=== PATIENT | female | born 1965 | race Caucasian/White ===

== ENCOUNTER 2016-09-21 05:11 | Observation (INO) | payer OTHER ==
[2016-09-21] MEDS ORDERED: NARCAN INJ IVP ONE (05:29)
[2016-09-21] MEDS ORDERED: D5 1/2 NS 1000 ML 1,000 ML IV ONE (05:31)
[2016-09-21] MEDS ORDERED: NARCAN INJ ONE (05:31)
[2016-09-21 05:34] LABS: BILIRUBIN,URINE NEGATIVE (NEGATIVE); BLOOD/HEMOGLOBIN,URINE 2+ (NEGATIVE); GLUCOSE, URINE NEGATIVE (NEGATIVE); KETONES,URINE 2+ (NEGATIVE); LEUKOCYTE ESTERASE ,URINE NEGATIVE (NEGATIVE); NITRITES,URINE NEGATIVE (NEGATIVE); PROTEIN,URINE 1+ (NEGATIVE); UROBILINOGEN,URINE NORMAL (NORMAL)
[2016-09-21 05:39] LABS: APPEARANCE,URINE CLEAR (CLEAR); BACTERIA,URINE TRACE /HPF (NEGATIVE); COLOR,URINE YELLOW (YELLOW); HYALINE CASTS, URINE FEW /LPF (NEGATIVE); RBC,URINE 0-3 /HPF (NEGATIVE); SQUAMOUS EPITHELIAL CELL,UR RARE /HPF (NEGATIVE)
[2016-09-21] MEDS ORDERED: HALDOL INJ IM ONE (05:39)
[2016-09-21] MEDS ORDERED: HALDOL INJ ONE (05:44)
--- NOTE | 2016-09-21 05:47 | DR.GENAD ---
HPI - Complaint/Symptoms Chief Complaint Doctors Comments: Patient presented to the ED via Ems S/P being called by a family due patient being combative, destroying furniture, being loud. Patient is known to have a history of substance abuse. She was given one amp of D50 secondary to low blood glucose (40mg/dl) by EMS. Upon arrival to the ED patient was combative, loud,moving all extremities uncontrollably. She was put in restraints for her protection and safety of hospital personnel. PMH - PMH Past Medical History: Anxiety, Hypertension, Hypothyroidism, Seizures Past Surgical History: Yes Surgical History: , Hysterectomy - Family History Family Medical History: Diabetes Mellitus, Cancer, Coronary Artery Disease, Hypertension - Social History Do you use any recreational Drugs:: No ROS - Review of Systems Constitutional: No Symptoms Reported PE - Vital Signs Vitals: Temperature 98.2 F Pulse Rate [Apical] 90 Pulse Rate 102 Respiratory Rate 16 Blood Pressure [Right Arm] 133/69 Blood Pressure [Left Arm] 111/71 Blood Pressure 131/68 O2 Sat by Pulse Oximetry 100 - General Limitations: Altered Mental Status (due to substance abuse and sedation) General Appearance: Obtunded - Head Head Exam: Atraumatic, Other (sores in scalp) - Eyes Eye exam: Mydrasis (~3mm bilaterally) - Neck Neck Exam: Normal Inspection - Chest Chest Inspection: Normal Inspection - Respiratory Respiratory Exam: Normal Lung Sounds Bilat Respiratory Exam: Bilateral Clear to Auscultation - Cardiovascular Cardiovascular Exam: Regular Rate, Normal Rhythm - Abdominal Exam Abdominal Exam: Normal Inspection Abdominal Tenderness: negative: RUQ, RLQ, LUQ, LLQ, Epigastrium, Suprapubic, Diffuse, Mild, Moderate, Severe, Other - Extremities Extremities Exam: Normal Inspection - Back Back Exam: Normal Inspection - Neurologic Neurological Exam: negative: Alert - Psychiatric Psychiatric Exam: Agitated - Skin Skin Exam: Warm, Dry ROR - Labs Reviewed Result Diagrams: 09/21/16 05:40 09/21/16 05:40 Laboratory: WBC 12.4 X10^3/uL (3.6-10.0) H 09/21/16 05:40 RBC 3.96 X10^6/uL (3.5-5.4) 09/21/16 05:40 Hgb 12.1 g/dL (12.0-16.0) 09/21/16 05:40 Hct 36.4 % (36.0-47.0) 09/21/16 05:40 MCV 91.9 fL (80.0-100.0) 09/21/16 05:40 MCH 30.5 pg (27.0-34.0) 09/21/16 05:40 MCHC 33.2 g/dL (33.0-35.0) 09/21/16 05:40 RDW 14.0 % (11.6-16.5) 09/21/16 05:40 Plt Count 120 X10^3/uL (150.0-450.0) L 09/21/16 05:40 MPV 11.3 fL (7.4-11.0) H 09/21/16 05:40 Neut % 89.3 % (42.0-75.0) H 09/21/16 05:40 Lymph % 4.5 % (21.0-51.0) L 09/21/16 05:40 [place] % 5.9 % (0.0-13.0) 09/21/16 05:40 Eos % 0.0 % (0.9-2.9) L 09/21/16 05:40 Baso % 0.3 % (0.2-1.0) 09/21/16 05:40 Neut # 11.1 x10^3/uL (2.2-4.8) H 09/21/16 05:40 Lymph # 0.6 X10^3/uL (1.3-2.9) L 09/21/16 05:40 [place] # 0.7 x10^3/uL (0.3-0.8) 09/21/16 05:40 Eos # 0.0 x10^3/uL (0.0-0.2) 09/21/16 05:40 Baso # 0.0 X10^3/uL (0.0-0.1) 09/21/16 05:40 Absolute Nucleated RBC 0.0 /100WBC 09/21/16 05:40 Sodium 139 mmol/L (136-145) 09/21/16 05:40 Corrected Sodium 139 mmol/L (136-145) 09/21/16 05:40 Potassium 4.2 mmol/L (3.5-5.1) 09/21/16 05:40 Chloride 101 mmol/L (98-107) 09/21/16 05:40 Carbon Dioxide 23.5 mmol/L (21-32) 09/21/16 05:40 BUN 37 mg/dL (7-18) H 09/21/16 05:40 Creatinine 1.21 mg/dL (0.55-1.02) H 09/21/16 05:40 Est GFR (MDRD) Af Amer > 60 (>60) 09/21/16 05:40 Est GFR (MDRD) Non-Af 50 (>60) L 09/21/16 05:40 Glucose 118 mg/dL (65-99) H 09/21/16 05:40 Calcium 8.9 mg/dL (8.5-10.1) 09/21/16 05:40 Corrected Calcium TNP 09/21/16 05:40 Total Bilirubin 1.70 mg/dL (0.2-1.0) H 09/21/16 05:40 AST 52 Units/L (15-37) H 09/21/16 05:40 ALT 34 Units/L (12-78) 09/21/16 05:40 Alkaline Phosphatase 115 Units/L (46-116) 09/21/16 05:40 Total Protein 8.2 g/dL (6.4-8.2) 09/21/16 05:40 Albumin 4.3 g/dL (3.4-5.0) 09/21/16 05:40 Globulin 3.9 g/dL (2.5-4.5) 09/21/16 05:40 Albumin/Globulin Ratio 1.1 Ratio (1.1-2.1) 09/21/16 05:40 Specimen Type Catherized urine 09/21/16 05:16 Urine Color Yellow (YELLOW) 09/21/16 05:16 Urine Appearance Clear (CLEAR) 09/21/16 05:16 Urine pH 6.0 (5.0 - 8.0) 09/21/16 05:16 Ur Specific [place] 1.025 (1.000-1.030) 09/21/16 05:16 Urine Protein 1+ (NEGATIVE) 09/21/16 05:16 Urine Glucose (UA) Negative (NEGATIVE) 09/21/16 05:16 Urine Ketones 2+ (NEGATIVE) 09/21/16 05:16 Urine Occult Blood 2+ (NEGATIVE) 09/21/16 05:16 Urine Nitrite Negative (NEGATIVE) 09/21/16 05:16 Urine Bilirubin Negative (NEGATIVE) 09/21/16 05:16 Urine Urobilinogen Normal (NORMAL) 09/21/16 05:16 Ur Leukocyte Esterase Negative (NEGATIVE) 09/21/16 05:16 Urine RBC 0-3 /HPF (NEGATIVE) 09/21/16 05:16 Urine WBC 0-2 /HPF (NEGATIVE) 09/21/16 05:16 Ur Squamous Epith Cells Rare /HPF (NEGATIVE) 09/21/16 05:16 Urine Bacteria Trace /HPF (NEGATIVE) 09/21/16 05:16 Hyaline Casts Few /LPF (NEGATIVE) 09/21/16 05:16 Ur Culture Indicated? No/not indicated 09/21/16 05:16 Urine Opiates Screen Negative (NEG=<300) 09/21/16 05:16 Urine Methadone Screen Negative (NEG=<300) 09/21/16 05:16 Ur Barbiturates Screen Negative (NEG=<200) 09/21/16 05:16 Ur Phencyclidine Scrn Negative (NEG=<25) 09/21/16 05:16 Ur Amphetamines Screen Positive (NEG=<1000) A 09/21/16 05:16 U Benzodiazepines Scrn Positive (NEG=<200) A 09/21/16 05:16 Urine Cocaine Screen Negative (NEG=<300) 09/21/16 05:16 U Marijuana (THC) Screen Negative (NEG=<50) 09/21/16 05:16 Ethyl Alcohol mg/dL < 3 mg/dL (0-19.9) 09/21/16 05:40 - XRAY XRAY Interpreted by: Radiologist (Chest: No acute cardiopulmonary disease) - EKG [place]: Normal Rhythm: NSR Hypertrophy: LAE - Diagnosis Discharge Problem: Substance abuse, Benzodiazepine abuse, Amphetamine abuse - Discharge Plan Condition: Stable - Follow ups/Referrals Follow ups/Referrals: NFD,None [Primary Care Provider] - 3 days - Instructions
[2016-09-21] MEDS ORDERED: ROMAZICON INJ 0.5 MG IVP ONE ×2 (05:51→06:39)
[2016-09-21] MEDS ORDERED: D5 1/2 NS 1000 ML 1,000 ML IV SCH (06:00)
[2016-09-21] MEDS ORDERED: D5 NS 1000 ML 1,000 ML IV SCH (06:00)
[2016-09-21 06:08] LABS: BASOPHILS % (AUTO) 0.3 % (0.2-1.0); HEMATOCRIT 36.4 % (36.0-47.0); HEMOGLOBIN 12.1 g/dL (12.0-16.0); LYMPHOCYTES # (AUTO) 0.6 X10^3/uL (1.3-2.9); LYMPHOCYTES % (AUTO) 4.5 % (21.0-51.0); MEAN CORPUSCULAR HEMOGLOBIN 30.5 pg (27.0-34.0); MEAN CORPUSCULAR HGB CONC 33.2 g/dL (33.0-35.0); MEAN CORPUSCULAR VOLUME 91.9 fL (80.0-100.0); MEAN PLATELET VOLUME 11.3 fL (7.4-11.0); MONOCYTES # (AUTO) 0.7 x10^3/uL (0.3-0.8); MONOCYTES % (AUTO) 5.9 % (0.0-13.0); NEUTROPHILS # (AUTO) 11.1 x10^3/uL (2.2-4.8); NEUTROPHILS % (AUTO) 89.3 % (42.0-75.0); PLATELET COUNT 120 X10^3/uL (150.0-450.0); RED BLOOD COUNT 3.96 X10^6/uL (3.5-5.4); WHITE BLOOD COUNT 12.4 X10^3/uL (3.6-10.0)
[2016-09-21 06:19] LABS: ALANINE AMINOTRANSFERASE 34 Units/L (12-78); ALBUMIN 4.3 g/dL (3.4-5.0); ALKALINE PHOSPHATASE 115 Units/L (46-116); ASPARTATE AMINO TRANSFERASE 52 Units/L (15-37); BLOOD ALCOHOL < 3 mg/dL (0-19.9); BLOOD UREA NITROGEN 37 mg/dL (7-18); CALCIUM 8.9 mg/dL (8.5-10.1); CARBON DIOXIDE 23.5 mmol/L (21-32); CHLORIDE 101 mmol/L (98-107); COR NA(FOR HYPERGLY) 139 mmol/L (136-145); CREATININE 1.21 mg/dL (0.55-1.02); GLUCOSE 118 mg/dL (65-99); SODIUM 139 mmol/L (136-145); TOTAL PROTEIN 8.2 g/dL (6.4-8.2); eGFR BLACK RACES > 60 (>60); eGFR NON BLACK RACES 50 (>60)
--- NOTE | 2016-09-21 06:45 | RAD ---
HISTORY: Altered mental status Study: Chest one view Comparison: July 23, 2016 Findings: The trachea is midline. The cardiac silhouette is unremarkable. The lungs are clear without focal infiltrate or effusion. The bony thorax is unremarkable. IMPRESSION: 1. No acute cardiopulmonary disease. Reported By:
[2016-09-21] MEDS ORDERED: NS 1000 ML 1,000 ML IV SCH (07:00)
[2016-09-21 07:05] LABS: TROPONIN I 0.05 ng/mL (0-1.5)
[2016-09-21 07:06] LABS: CKMB % 1.4 % (<4); CREATINE KINASE MB 17.3 ng/mL (0-4.0)
[2016-09-21] MEDS ORDERED: ROMAZICON INJ 0.5 MG ONE ×2 (07:12→07:22)
[2016-09-21] MEDS: NS 1000 ML 1,000 ML IV SCH ×2 (08:11→18:03)
--- NOTE | 2016-09-21 09:26 | DR.H&P ---
H&P - History & Physical for Day of: H&P Date: 09/21/16 - Chief Complaint Chief Complaint: psychotic episode - Allergies Allergies/Adverse Reactions: Allergies Allergy/AdvReac Type Severity Reaction Status Date / Time No Known Drug Allergy Allergy Verified 01/13/14 21:48 - History of Present Illness History of Present Illness: Patient presented to the emergency room with complaiints of family member of jordin bosch being combative, throwing furniture, and verbally abusive. Reji is known to have history of substance abuse. Upon arrival patient was found to be combative and was given medication to reverse benzodiazepine overdose as well as small dose of haldol to calm her down. Reji admitted to ICU for futher evaluation and treatment - Past Medical History Past Medical History: Anxiety, Hypertension, Hypothyroidism, Seizures Additional Medical History: fibromyalgia, lupus - Past Surgical History Surgical History: , Hysterectomy - Family History Family Medical History: Diabetes Mellitus, Cancer, Coronary Artery Disease, Hypertension - Social History Does patient currently use any type of tobacco product: Yes Have you used tobacco products in the last 12 months: Yes Type of Tobacco Use: Cigarettes Does any household member use tobacco: No Alcohol Use: Occasionally - Medications Home Medications: Unobtainable [UNOBTAINABLE] 09/21/16 [History Confirmed 09/21/16] - Review of Systems Constitutional: Other (combative) Eyes: No Symptoms Reported ENT: No Symptoms Reported Respiratory: No Symptoms Reported Cardiovascular: No Symptoms Reported Gastrointestinal: No Symptoms Reported Genitourinary: No Symptoms Reported Musculoskeletal: No Symptoms Reported Skin: No Symptoms Reported Neurological: See HPI, Confusion, Other (altered mental status) - Physical Exam Vital Signs: Pulse Rate [Apical] 68 Respiratory Rate 17 Blood Pressure [Right Arm] 139/72 O2 Sat by Pulse Oximetry 100 Oriented: Normal Eyes: Normal Ear: Normal Nose: Normal Throat: Normal Respiratory: Clear Throughout Cardiovascular: Normal : Normal Auscultation: Bowel Sounds: Normal Palpation: Normal Tenderness: Normal Skin: Normal Musculoskeletal: Normal Psychiatric: Agitation Mood Description: Angry, Hostile, Anxious Affect: Hysterical, Violent Speech Pattern: Inappropriate - Assessment/Plan (1) Amphetamine abuse Status: Acute Plan: continue to monitor (2) Benzodiazepine abuse Status: Acute Plan: continue to monitor (3) Substance abuse Status: Acute (4) Altered mental status Qualifiers: Altered mental status type: transient alteration of awareness Coma depth: C Coma timing: C Qualified Code(s): R40.4 - Transient alteration of awareness Status: Acute Plan: continue to monitor in ICU
[2016-09-21 09:32] VITALS: BMI 19.3
[2016-09-22] MEDS: NS 1000 ML 1,000 ML IV SCH (00:10)
[2016-09-22 05:29] LABS: BASOPHILS % (AUTO) 0.8 % (0.2-1.0); EOSINOPHILS # (AUTO) 0.1 x10^3/uL (0.0-0.2); EOSINOPHILS % (AUTO) 1.3 % (0.9-2.9); HEMATOCRIT 33.4 % (36.0-47.0); HEMOGLOBIN 11.4 g/dL (12.0-16.0); LYMPHOCYTES # (AUTO) 1.5 X10^3/uL (1.3-2.9); MEAN CORPUSCULAR HEMOGLOBIN 31.7 pg (27.0-34.0); MEAN CORPUSCULAR HGB CONC 34.3 g/dL (33.0-35.0); MEAN CORPUSCULAR VOLUME 92.5 fL (80.0-100.0); MEAN PLATELET VOLUME 11.1 fL (7.4-11.0); MONOCYTES # (AUTO) 0.4 x10^3/uL (0.3-0.8); MONOCYTES % (AUTO) 5.8 % (0.0-13.0); NEUTROPHILS # (AUTO) 4.1 x10^3/uL (2.2-4.8); NEUTROPHILS % (AUTO) 67.1 % (42.0-75.0); PLATELET COUNT 95 X10^3/uL (150.0-450.0); RED BLOOD COUNT 3.61 X10^6/uL (3.5-5.4); RED CELL DISTRIBUTION WIDTH 14.4 % (11.6-16.5); WHITE BLOOD COUNT 6.1 X10^3/uL (3.6-10.0)
[2016-09-22 05:36] LABS: ALANINE AMINOTRANSFERASE 29 Units/L (12-78); ALKALINE PHOSPHATASE 87 Units/L (46-116); ASPARTATE AMINO TRANSFERASE 32 Units/L (15-37); BLOOD UREA NITROGEN 22 mg/dL (7-18); CALCIUM 7.8 mg/dL (8.5-10.1); CARBON DIOXIDE 23.1 mmol/L (21-32); CHLORIDE 109 mmol/L (98-107); COR CA(FOR HYPOALB) 8.6 mg/dL (8.5-10.1); CREATININE 0.65 mg/dL (0.55-1.02); GLUCOSE 75 mg/dL (65-99); SODIUM 144 mmol/L (136-145); TOTAL PROTEIN 6.3 g/dL (6.4-8.2); eGFR BLACK RACES > 60 (>60); eGFR NON BLACK RACES > 60 (>60)
[2016-09-22 09:43] VITALS: BP 150/71
== END 2016-09-22 11:55 | disposition home or self-care (01) ==
LOC: ER 05:11 → OBS 08:03 → ICU 08:57
PROVIDERS: ADMIT Obstetrics & Gynecology Obstetrics; ATTEND Obstetrics & Gynecology Obstetrics
DX: T40.4X4A Poisoning by other synthetic narcotics, undetermined, initial encounter (principal); T43.624A Poisoning by amphetamines, undetermined, initial encounter; F13.10 Sedative, hypnotic or anxiolytic abuse, uncomplicated; F15.10 Other stimulant abuse, uncomplicated; I10 Essential (primary) hypertension; E03.8 Other specified hypothyroidism; G40.89 Other seizures; F41.8 Other specified anxiety disorders; D64.89 Other specified anemias; D72.828 Other elevated white blood cell count; R94.4 Abnormal results of kidney function studies; Z78.1 Physical restraint status
CPT/HCPCS: 36415; 51702; 71010; 80053; 80307; 80320; 81001; 82550; 82553; 84484; 85025; 93005; 93010; 96365; 96367; 96372; 96374; 96375; 99284; G0378; G0434; G6040; J1630; J2310; J3490; J7042